=== PATIENT | female | born 1970 | race American Indian/Alaskan Native ===

== ENCOUNTER 2017-09-02 16:32 | Emergency (ER) | payer OTHER ==
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
[2017-09-02] MEDS ORDERED: TORADOL IM ONE (23:30)
[2017-09-02] MEDS ORDERED: TORADOL ONE (23:31)
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
[2017-09-03] MEDS ORDERED: FLEXERIL PO ONE (02:00)
[2017-09-03 02:36] VITALS: BP 150/79
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
== END 2017-09-03 02:45 | disposition home or self-care (01) ==
LOC: ED 16:32
DX: S16.1XXA Strain of muscle, fascia and tendon at neck level, initial encounter (principal); S39.012A Strain of muscle, fascia and tendon of lower back, initial encounter; V49.49XA Driver injured in collision with other motor vehicles in traffic accident, initial encounter; Y93.89 Activity, other specified; Y92.89 Other specified places as the place of occurrence of the external cause; Y99.8 Other external cause status
CPT/HCPCS: 70450; 72100; 72125; 96372; 99284; J1885

== ENCOUNTER 2019-05-11 08:58 | Outpatient (CLI) | payer OTHER | END 2019-05-11 08:59 | disposition home or self-care (01) | LOC: PF 08:58 | PROVIDERS: ATTEND Internal Medicine | DX: Z02.71 Encounter for disability determination (principal); J45.909 Unspecified asthma, uncomplicated; I10 Essential (primary) hypertension; Z90.710 Acquired absence of both cervix and uterus | CPT/HCPCS: 94010 ==